=== PATIENT | female | born 1945 | race Caucasian/White ===

== ENCOUNTER 2016-09-11 09:23 | Outpatient (CLI) | END 2016-09-11 09:24 | LOC: AMBL 09:23 | PROVIDERS: ATTEND Emergency Medicine | DX: R40.4 Transient alteration of awareness (principal); I48.91 Unspecified atrial fibrillation ==

== ENCOUNTER 2017-01-01 07:45 | Emergency (ER) ==
[2017-01-01 07:56] VITALS: BP 81/54; TEMP 98.6; BMI 24.0
[2017-01-01 08:34] LABS: ABG BASE EXCESS -2 (-2.0-2.0); ABG HCO3 21.1 (22.0-26.0); ABG PCO2 26.6 mmHg (35-45); ABG PH 7.508 (7.35-7.45); ABG TCO2 22 (22.0-28.0)
--- NOTE | 2017-01-01 08:44 | ED.PDOC ---
General ED Provider: Dr. JONNA TOVAR JR Chief Complaint: Fall Stated Complaint: from [facility] fall during NIGHT- injury cut to inner lobe RIGHT ear-- ooze slightly-- cva with speech DEfect left paralysis--head no when asked about other pain-- loose cough--dozes off during assessment[End]98.6 107 24 84% 81/54 fall;injury to RIGHT ear[End]pt into gown--noted large bruised area RIGHT lateral chest -- noted last FRIDAY--UNKNOWN how it happened--has crackles bilaterally[End][facility] reported declining 15lb weight loss--hx lung ca antibiotics/steroids recently[End] Time Seen by Physician: 08:42 Mode of Arrival: Wheelchair Information Source: Prison Exam Limitations: Clinical condition Primary Care Provider: MADELYN MONTOYA Nursing and Triage Documentation Reviewed and Agree: No Review of Systems - Review Of Systems Constitutional: Reports: No symptoms Eyes: Reports: Other Ears, Nose, Mouth, Throat: Reports: No symptoms Respiratory: Reports: Cough Cardiac: Reports: No symptoms GI: Reports: No symptoms : Reports: No symptoms Musculoskeletal: Reports: No symptoms Skin: Reports: Bruising, Lesions (RIGHT EAR) Neurological: Reports: Unable to move lower ext, Unable to move upper ext, Other (VERBAL DEFECIT- NOT NEW) Endocrine: Reports: No symptoms Hematologic/Lymphatic: Reports: No symptoms All Other Systems: Other Past Medical History - Past Medical History Endocrine: Reports: Unknown Cardiovascular: Reports: Hypertension, A-Fib Respiratory: Reports: Unknown Hematological: Reports: Unknown Gastrointestinal: Reports: Other (DYSPHAGIA) Genitourinary: Reports: Unknown 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) Musculoskeletal: Reports: Unknown Cancer: Reports: Lung Last Menstrual Period: menopause Other Pertinent Past Medical History: HTN CVA AFIB DYSPHAGIA - Surgical History General Surgical History: Reports: Unknown - Family History Family History: Reports: Unknown - Social History Smoking Status: Unknown if ever smoked Hx Substance Use: No Alcohol Screening: None Physical Exam - Physical Exam Appearance: Well-appearing Pain Distress: Mild ENT: Ears normal (BLEEDING FROM RIGHT UPPER EAR ECCHYMOSES AURICLE) Neck: Supple Respiratory: Airway patent, Crackles, Rhonchi Cardiovascular: Irregular rhythm GI/: Soft, Nontender Skin: Warm, Dry (NOTE BRUISE) Neurological: Sensation intact, Alert, Focal Deficit Psychiatric: Affect appropriate Re-Evaluation - Re-Evaluation Time of Re-Evaluation: 09:05 (DISCUSSED EAR WITH DR MANSFIELD- SIMPLY APPLY ANTIBIOTIC OINTMENT TO LACERATION NONEED TO TRREAT BRUISING OF EAR) Status: Improved Physician Notification - Case Discussed Physician Notified: LINDSAY Time of Notification: 11:08 (KNOWN ILLNESS HAS BAD CANCER OK TO SEND BACK) Critical Care Note - Critical Care Note Total Time (mins): 20 Course - Course Hematology/Chemistry: 01/01/17 08:30 01/01/17 08:30 Orders, Labs, Meds: Lab Review 01/01/17 01/01/17 08:05 08:30 WBC 21.59 H RBC 2.43 L Hgb 7.5 L Hct 25.0 L MCV 102.9 H MCH 30.9 MCHC 30.0 L RDW Coeff of Maye 22.7 H Plt Count 90 L Immature Gran % (Auto) 7.8 H Neut % (Auto) 76.9 Lymph % (Auto) 9.0 L Dillon % (Auto) 5.3 Eos % (Auto) 0.8 Baso % (Auto) 0.2 Immature Gran # (Auto) 1.7 H Neut # 16.6 H Lymph # 1.9 Dillon # 1.2 Eos # 0.2 Baso # 0.1 Polychromasia 2+ Hypochromasia 1+ Poikilocytosis 1+ Anisocytosis 2+ Macrocytosis 2+ Target Cells 1+ Schistocytes 1+ PT 19.4 H INR 1.88 APTT 28.1 Puncture Site Lb O2 Saturation 82.0 L ABG pH 7.508 H* ABG pCO2 26.6 L ABG pO2 40.0 L* ABG HCO3 21.1 L ABG Total CO2 22 ABG Base Excess -2 FiO2 % 21.0 Sodium 137 Potassium 3.6 Chloride 105 Carbon Dioxide 20 L Anion Gap 15.6 BUN 24 H Creatinine 0.77 Estimated GFR (MDRD) 74.00 BUN/Creatinine Ratio 31.16 Glucose 122 H Lactic Acid 29.3 H Calcium 8.6 Total Bilirubin 1.52 H AST 13 L ALT 6 L Alkaline Phosphatase 64 Total Creatine Kinase 37 Troponin I < 0.0100 B-Natriuretic Peptide 29 Total Protein 5.4 L Albumin 3.0 L Globulin 2.4 Albumin/Globulin Ratio 1.25 Procalcitonin < 0.05 Orders Category Date Time Status ABG DRAW REQUEST Stat CARDIO 01/01/17 08:10 Completed EKG-(ED ONLY) Stat CARDIO 01/01/17 08:10 Completed CONSULT DOCTOR [PHYSICIAN CONSULTATION] [CONS] Routine CONSULTS 01/01/17 09: 06 Ordered ED IV/MEDIPORT/POWERPORT .ONCE EMERGENCY 01/01/17 08:09 Active ABG Stat LAB 01/01/17 08:05 Completed B-TYPE NATRIURETIC PEPTIDE Stat LAB 01/01/17 08:30 Completed BLOOD CULTURE Stat LAB 01/01/17 08:30 Received CBC W/ AUTO DIFF Stat LAB 01/01/17 08:30 Completed COMPREHENSIVE METABOLIC PANEL Stat LAB 01/01/17 08:30 Completed CREATINE KINASE Stat LAB 01/01/17 08:30 Completed LACTIC ACID Stat LAB 01/01/17 08:30 Completed PROCALCITONIN Stat LAB 01/01/17 08:30 Completed PT WITH INR Stat LAB 01/01/17 08:30 Completed PTT [PARTIAL THROMBOPLASTIN TIME] Stat LAB 01/01/17 08:30 Completed RBC MORPHOLOGY Stat LAB 01/01/17 08:30 Completed TROPONIN I Stat LAB 01/01/17 08:30 Completed 0.9 % Sodium Chloride [Saline Flush] MEDS 01/01/17 08:09 Active 1 syr IVF PRN PRN Ceftriaxone Sodium [Rocephin] MEDS 01/01/17 09:00 Discontinued 1 gm IM ONCE STA Lidocaine HCl/Pf [Lidocaine 1 % Amp 5 ml (Sutures)] MEDS 01/01/17 09:00 Discontinued 2.1 ml IM ONCE STA Lidocaine HCl/Pf [Lidocaine 1 % Amp 5 ml (Sutures)] MEDS 01/01/17 08:57 Discontinued 5 ml SUBCUT ONCE STA Tramadol HCl [Ultram] MEDS 01/01/17 11:25 Discontinued 50 mg PO ONCE STA CHEST, 2 VIEWS PA & LAT Stat RADS 01/01/17 08:[address] HEAD W/O CONTRAST Stat RADS 01/01/17 08:06 Completed Medications Generic Name Dose Route Start Last Admin Trade Name Freq PRN Reason Stop Dose Admin Sodium Chloride 1 syr 01/01/17 08:09 Saline Flush IVF PRN PRN To flush IV Discontinued Medications Generic Name Dose Route Start Last Admin Trade Name Freq PRN Reason Stop Dose Admin Ceftriaxone Sodium 1 gm 01/01/17 09:00 01/01/17 09:20 Rocephin IM 01/01/17 09:01 1 gm ONCE STA Administration Lidocaine HCl 5 ml 01/01/17 08:57 01/01/17 09:22 Lidocaine 1 % Amp 5 Ml (Sutures) SUBCUT 01/01/17 08:58 Not Given ONCE STA Lidocaine HCl 2.1 ml 01/01/17 09:00 01/01/17 09:20 Lidocaine 1 % Amp 5 Ml (Sutures) IM 01/01/17 09:01 2.1 ml ONCE STA Administration Tramadol HCl 50 mg 01/01/17 11:25 Ultram PO 01/01/17 11:26 ONCE STA Vital Signs: Temp Pulse Resp BP Pulse Ox 01/01/17 07:46 98.6 F 107 H 24 81/54 L 84 L Departure - Departure Time of Disposition: 11:13 Disposition: TRANSFER SNF Discharge Problem: Falls, Laceration Lung cancer Qualifiers: Laterality: unspecified laterality Lung location: unspecified part of lung Qualifier Code: (C34.90) Malignant neoplasm of unspecified part of unspecified bronchus or lung Instructions: Fall Prevention for Older Adults (ED), Laceration Without Closure (ED) Condition: Fair Pt referred to PMD for follow-up: Yes Additional Instructions: change bandage daily antibiotic ointment and guaze ultram for pain note given Rocephin 1 gram IM Allergies/Adverse Reactions: Allergies doxycycline Adverse Reaction (Verified 01/01/17 07:59) hydrocodone Adverse Reaction (Verified 01/01/17 07:59) oxycodone Adverse Reaction (Verified 01/01/17 07:59) tetanus toxoid, adsorbed Adverse Reaction (Verified 01/01/17 07:59) Home Medications: Ambulatory Orders Acetaminophen [Tylenol] 650 mg PO Q4H PRN 01/01/17 Albuterol Sulfate 0.083% Neb [Albuterol 0.083% Neb] 1 vial NEB RTQ8H 01/01/17 Alprazolam [Xanax] 0.25 mg PO QID PRN 01/01/17 Bisacodyl 10 mg RC DIRECTED PRN 01/01/17 Carboxymethylcellulose Sodium [Refresh Tears] 15 ml OP BID 01/01/17 Citalopram Hydrobromide [Celexa] 20 mg PO DAILY 01/01/17 Levofloxacin [Levaquin] 500 mg PO QDAC 01/01/17 Levothyroxine Sodium [Synthroid] 75 mcg PO QDAC 01/01/17 Magnesium Hydroxide [Milk of Magnesia] 30 ml PO DAILY PRN 01/01/17 Methylprednisolone [Medrol Dosepak] 4 mg PO DIRECTED 01/01/17 Tramadol HCl [Ultram] 50 mg PO Q6H PRN 01/01/17
[2017-01-01 08:51] LABS: BASOPHILS # (AUTO) 0.1 K/uL (0-0.2); BASOPHILS % (AUTO) 0.2 % (0.0-3.0); EOSINOPHILS # (AUTO) 0.2 K/ul (0.0-0.7); EOSINOPHILS % (AUTO) 0.8 % (0.0-7.0); HEMOGLOBIN 7.5 g/dl (12.0-16.0); IMMATURE GRANULOCYTE % (AUTO) 7.8 % (0.0-5.0); LYMPHOCYTES # (AUTO) 1.9 K/uL (0.60-3.4); MEAN CORPUSCULAR HEMOGLOBIN 30.9 pg (27.0-31.0); MEAN CORPUSCULAR VOLUME 102.9 fl (81.0-99.0); MONOCYTES # (AUTO) 1.2 K/uL (0.4-2.0); MONOCYTES % (AUTO) 5.3 (0-10); NEUTROPHILS # (AUTO) 16.6 K/ul (2.0-6.9); NEUTROPHILS % (AUTO) 76.9; PLATELET COUNT 90 10^3/uL (140-440); RED BLOOD COUNT 2.43 10^6/ul (4.20-5.40)
--- NOTE | 2017-01-01 08:56 | DI ---
EXAM: Two-view chest HISTORY: Cough TECHNIQUE: Frontal and lateral views of the chest were obtained. Comparison 06/14/2016. FINDINGS: The heart is stable size. The left lung appears clear. Diffuse infiltrates are seen thr oughout the right lung. The findings appear to be located anteriorly on the lateral view. IMPRESSION: Probable right upper lobe pneumonia.
[2017-01-01] MEDS ORDERED: LIDOCAINE 1 % AMP 5 ML (SUTURES) SUBCUT STA (08:57)
[2017-01-01] MEDS ORDERED: LIDOCAINE 1 % AMP 5 ML (SUTURES) IM STA (09:00)
[2017-01-01] MEDS ORDERED: ROCEPHIN IM STA (09:00)
[2017-01-01 09:07] LABS: HYPOCHROMASIA 1+ (NOT PRESENT); POIKILOCYTOSIS 1+ (NOT PRESENT); POLYCHROMASIA 2+ (NOT PRESENT); WHITE BLOOD COUNT 21.59 K/ul (4.6-10.2)
[2017-01-01 09:08] LABS: ANISOCYTOSIS 2+ (NOT PRESENT); SCHISTOCYTES 1+ (NOT PRESENT); TARGET CELLS 1+ (NOT PRESENT)
--- NOTE | 2017-01-01 09:13 | CT ---
EXAM: CT scan of the head without contrast HISTORY: Patient fell,. struck right ear TECHNIQUE: Imaging of the head was performed without contrast. 5 mm thin axial images and coronal and sagittal images were provided for interpretation. Comparison none. FINDINGS: There is extensive encephalomalacia seen within the left temporal lobe, left basal gangli a, left frontal lobe, left parietal lobe and within the left occipital lobe. There is no acute hemo rrhage or mass effect. There are no extraaxial collections. The basal cisterns are patent. The pa ranasal sinuses and mastoid air cells are clear. The calvarium and extracranial soft tissues are no rmal. 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 No acute traumatic abnormalities are seen.
[2017-01-01 09:16] LABS: ALANINE AMINOTRANSFERASE 6 U/L (12-78); ALBUMIN/GLOBULIN RATIO 1.25; ALKALINE PHOSPHATASE 64 U/L (53-141); ANION GAP 15.6; ASPARTATE AMINO TRANSFERASE 13 U/L (15-37); BILIRUBIN,TOTAL 1.52 mg/dL (0.00-1.20); BLOOD UREA NITROGEN 24 mg/dL (7-18); BUN/CREATININE RATIO 31.16; CALCIUM 8.6 mg/dL (8.2-10.2); CARBON DIOXIDE 20 mmol/L (23-31); CHLORIDE 105 mmol/L (98-107); CREATINE KINASE 37 U/L; CREATININE 0.77 mg/dL (0.60-1.30); GLUCOSE 122 mg/dL (82-115); POTASSIUM 3.6 mmol/L (3.5-5.10); SODIUM 137 mmol/L (136-145); TOTAL PROTEIN 5.4 g/dL (5.8-8.1)
[2017-01-01 09:50] LABS: PROTHROMBIN TIME 19.4 SEC (9.3-11.0)
[2017-01-01 09:51] LABS: PARTIAL THROMBOPLASTIN TIME 28.1 SEC (23.9-40.0)
[2017-01-01] MEDS ORDERED: ULTRAM PO STA (11:25)
== END 2017-01-01 11:55 ==
LOC: ED 07:45
DX: S01.311A Laceration without foreign body of right ear, initial encounter (principal); C34.90 Malignant neoplasm of unspecified part of unspecified bronchus or lung; S20.219A Contusion of unspecified front wall of thorax, initial encounter; I10 Essential (primary) hypertension; I63.9 Cerebral infarction, unspecified; G81.94 Hemiplegia, unspecified affecting left nondominant side; W19.XXXA Unspecified fall, initial encounter; Z79.899 Other long term (current) drug therapy
CPT/HCPCS: 36415; 80053; 82550; 82803; 83605; 83880; 84145; 84484; 85008; 85025; 85610; 85730; 87040; 93005; 93010; 96372; 99283

== ENCOUNTER 2017-01-02 20:35 | Outpatient (CLI) ==
[2017-01-01 07:56] VITALS: BMI 24.0
== END 2017-01-02 20:36 | disposition home or self-care (01) ==
LOC: AMBL 20:35
PROVIDERS: ATTEND Internal Medicine Geriatric Medicine
DX: R53.1 Weakness (principal); R88.8 Abnormal findings in other body fluids and substances